=== PATIENT | female | born 1955 | race American Indian/Alaskan Native ===

== ENCOUNTER 2016-10-22 07:41 | Day surgery (SDC) | payer BC ==
[2016-10-19 09:41] VITALS: BMI 27.8
[2016-10-22 08:17] VITALS: O2SAT 100
[2016-10-22] MEDS ORDERED: Propofol 10 mg/ml Inj (20 ML) ONE ×2 (08:50→09:26)
[2016-10-22] MEDS ORDERED: Phenylephrine 10 mg/ml Inj ONE (09:11)
[2016-10-22] MEDS ORDERED: ePHEDrine 50 mg/ml Inj ONE (09:14)
[2016-10-22 09:50] VITALS: RESP 16
[2016-10-22] MEDS ORDERED: Sodium Chloride 0.9% 1,000 ML IV SCH (10:00)
[2016-10-22 10:53] VITALS: BP 101/60; PULSE 81; TEMP 97.6
== END 2016-10-22 11:29 | disposition home or self-care (01) ==
LOC: ENDO 07:41
PROVIDERS: ATTEND Internal Medicine Gastroenterology
DX: Z12.11 Encounter for screening for malignant neoplasm of colon (principal); D12.5 Benign neoplasm of sigmoid colon; K57.30 Diverticulosis of large intestine without perforation or abscess without bleeding; E11.9 Type 2 diabetes mellitus without complications; I10 Essential (primary) hypertension; E78.5 Hyperlipidemia, unspecified; K64.1 Second degree hemorrhoids
CPT/HCPCS: 45385; 82948; 88305; J2001; J2370; J2704; J7040 ×2